=== PATIENT | female | born 1930 | race Caucasian/White ===

== ENCOUNTER 2017-07-21 09:41 | Inpatient (IN) | payer MEDICARE, BC ==
[2017-07-21] MEDS ORDERED: NS 0.9% 1000 ML*IV.FLUID IV ONE (10:13)
[2017-07-21 10:42] LABS: ABS Basophils 0 10^3/ul (0-0.2); ABS Eosinophils 0.2 10^3/ul (0-0.6); ABS Lymphocytes 1.5 10^3/ul (1.0-4.8); ABS Monocytes 0.9 10^3/ul (0-0.8); ABS Nucleated RBC 0 10^3/ul; Eosinophil % 2.2 % (0-6); Hematocrit 32 % (35-47); Hemoglobin 10.8 g/dl (12.0-16.0); Lymphocyte % 17.1 % (25-47); Mean Corpuscular HGB Conc 34 g/dl (31-36); Mean Corpuscular Hemoglobin 32 pg (27-31); Mean Corpuscular Volume 94 fL (80-97); Mean Platelet Volume 7.8 um3 (7.4-10.4); Nucleated Red Blood Cells % 0; Platelet Count 316 10^3/ul (150-450); Red Blood Count 3.36 10^6/ul (4.00-5.40); Red Cell Distribution Width 13 % (10.5-15); White Blood Count 8.6 10^3/ul (3.5-10.8)
[2017-07-21 10:59] LABS: EGFR Non-African American 52.8 (>60)
[2017-07-21 11:03] LABS: INR 0.97 (0.77-1.02)
--- NOTE | 2017-07-21 11:10 | RAD ---
HISTORY: SEPSIS COMPARISONS: February 09, 2014 VIEWS: 1: frontal portable view of the chest at 10:40 AM FINDINGS: LINES AND TUBES: None. CARDIOMEDIASTINAL SILHOUETTE: The cardiomediastinal silhouette is normal for portable technique. PLEURA: The costophrenic angles are sharp. No pleural abnormalities are noted. LUNG PARENCHYMA: There is hyperinflation. ABDOMEN: The upper abdomen is clear. There is no subphrenic gas. BONES AND SOFT TISSUES: Degenerative changes are noted. IMPRESSION: NO ACTIVE CARDIOPULMONARY DISEASE.
[2017-07-21 11:27] LABS: Urine Appearance Cloudy; Urine Blood Negative (Negative); Urine Color Yellow; Urine Ketones Negative (Negative); Urine Protein Negative (Negative); Urine Specific Gravity 1.017 (1.010-1.030); Urine Urobilinogen Negative (Negative)
[2017-07-21] MEDS ORDERED: cefTRIAXone(*) 1 GM in NS 0.9% 50 ML* 50 ML IVPB ONE (11:41)
[2017-07-21] MEDS ORDERED: cefTRIAXone(*) 1 GM ADVAN/BAG ONE (11:47)
[2017-07-21] MEDS ORDERED: Al Hydrox/Mg Hydrox/Simet LIQ* 30 ML UDC PO PRN (12:32)
[2017-07-21] MEDS: Enoxaparin(*) 40 MG/0.4 ML SYR SUBCUT SCH (14:44)
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
--- NOTE | 2017-07-21 18:50 | ED ---
Brian Reaves Angela, scribed for Luther Peraza MD on 07/21/17 at 1012 . Neurological HPI - HPI Summary HPI Summary: This pt is an 86 y/o female, accompanied by her , presenting to [facility] via EMS for confusion and increased weakness. Pt notes she has been eating and drinking well. reports the pt has been acting "either depressed or mad at me." He states pt has had diarrhea and was "cleaning messes all night." Denies chest pain, heaviness, pressure, SOB, or any pain. Pt denies any recent falls. Per , pt has been ambulatory but it has been more difficult to ambulate recently. notes the pt also fell 1 month ago. states he is unable to care for the pt at home. Her PCP is Dr. Perez. PMHx includes Alzheimer's disease and dementia (diagnosed 7 years ago). - History of Current Complaint Chief Complaint: EDAltMentalStatus Stated Complaint: CONFUSION Time Seen by Provider: 07/21/17 09:49 Hx Obtained From: Patient, Family/Grounds Worker - Onset/Duration: Started days ago, Still Present Timing: Constant Current Severity: Moderate Pain Intensity: 0 Pain Scale Used: 0-10 Numeric Character: Weak - generalized, Confusion Aggravating: Nothing Alleviating: Nothing Associated Signs and Symptoms: Positive: Confusion, Weakness, Diarrhea. Negative: Pain, Fever - Additional Pertinent History Primary Care Physician: [id number] - Allergy/Home Medications Allergies/Adverse Reactions: Allergies Allergy/AdvReac Type Severity Reaction Status Date / Time Iodinated Contrast- Oral and Allergy Hives Verified 07/21/17 09:58 IV Dye Home Medications: Home Medications Calcium Carbonate [Calcium] 500 mg PO DAILY 07/21/17 [History Confirmed 07/21/17 ] Cyanocobalamin TAB* [Vitamin B12 TAB*] 500 mcg PO DAILY 07/21/17 [History Confirmed 07/21/17] Multivitamins/Minerals TAB* [Theragran/minerals TAB*] 1 tab PO DAILY 07/21/17 [ History Confirmed 07/21/17] [place]-3 Fatty Acids (Nf) [Fish Oil (NF)] 1,000 mg PO DAILY 07/21/17 [History Confirmed 07/21/17] Sertraline* [Zoloft*] 50 mg PO DAILY 07/21/17 [History Confirmed 07/21/17] amLODIPine TAB* [Norvasc 5 mg TAB*] 2.5 mg PO DAILY 07/21/17 [History Confirmed 07/21/17] PMH/Surg Hx/FS Hx/Imm Hx Endocrine/Hematology History: Denies: Hx Diabetes Cardiovascular History: Reports: Hx Coronary Artery Disease Denies: Hx Hypertension, Hx Pacemaker/ICD Respiratory History: Denies: Hx Asthma GI History: Reports: Hx Gastroesophageal Reflux Disease - ON MEDICATION FOR, Hx Irritable Bowel, Other GI Disorders - HISTORY OF MICROSCOPIC COLITIS-2012 History: Reports: Other Problems/Disorders - stress incontinence Denies: Hx Renal Disease Musculoskeletal History: Reports: Hx Arthritis, Hx Back Problems - Spinal stenosis. Scoliosis., Other Musculoskeletal History - HX OF RUPTURED TENDONS LEFT ANKLE w/repair. Spinal stenosis. Scoliosis. Sensory History: Reports: Hx Contacts or Glasses - Has difficulty seeing persons , Hx Macular Degeneration, Hx Vision Problem, Hx Hearing Problem - Can be hard of hearing Denies: Hx Cataracts, Hx Hearing Aid Opthamlomology History: Reports: Hx Contacts or Glasses - Has difficulty seeing persons, Hx Macular Degeneration, Hx Vision Problem Denies: Hx Cataracts Neurological History: Reports: Hx Dementia, Hx Migraine, Hx Nerve Disease - "NEURITIS IN WRIST JOINTS", Other Neuro Impairments/Disorders - SCOLIOSIS AFFECTING RIGHT HIP. Possible mild dementia Psychiatric History: Reports: Hx Anxiety, Hx of Violent Episodes Against Others Denies: Hx Eating Disorder, Hx Panic Disorder - Cancer History Cancer Type, Location and Year: hs of skin CA Hx Chemotherapy: No Hx Radiation Therapy: No Hx Palliative Cancer Treatment: No - Surgical History Surgery Procedure, Year, and Place: BILATERAL KNEE REPLACEMENT, [facility]. 1980 TOTAL HYSTERECTOMY, [facility]. BILATERAL TIBIAL TENDON REPAIR [facility] YOUNG CHILD. T&A,. SKIN GRAFT-CATARACT. BIlat carpal tunnel. Hx Anesthesia Reactions: No - Immunization History Date of Tetanus Vaccine: Unk Date of Influenza Vaccine: None this year Infectious Disease History: No Infectious Disease History: Denies: Traveled Outside the [place] in Last 30 Days - Family History Known Family History: Negative: Cardiac Disease, Diabetes - Social History Alcohol Use: None Alcohol Amount: SMALL GLASS WINE Substance Use Type: Reports: None Smoking Status (MU): Former Smoker Have You Smoked in the Last Year: No Review of Systems Negative: Fever, Chills Negative: Erythema Negative: Sore Throat Negative: Chest Pain Negative: Shortness Of Breath, Cough Positive: Diarrhea. Negative: Abdominal Pain, Vomiting, Nausea Negative: dysuria, hematuria Negative: Myalgia, Edema Negative: Rash Neurological: Other - POS: confusion. NEG: dizziness Positive: Weakness All Other Systems Reviewed And Are Negative: Yes Physical Exam - Summary Physical Exam Summary: Constitutional: Well-developed, Well-nourished, Alert. (-) Distressed Skin: Warm, Dry HENT: Normocephalic; Atraumatic. Dry mucous membranes. Eyes: Conjunctiva normal Neck: Musculoskeletal ROM normal neck. (-) JVD, (-) Stridor, (-) Tracheal deviation Cardio: Rhythm regular, rate normal, Heart sounds normal; Intact distal pulses; The pedal pulses are 2+ and symmetric. Radial pulses are 2+ and symmetric. (-) Murmur Pulmonary/Chest wall: Effort normal. (-) Respiratory distress, (-) Wheezes, (-) Rales Abd: Soft. (-) Tenderness, (-) Distension, (-) Guarding, (-) Rebound Musculoskeletal: (-) Edema Lymph: (-) Cervical adenopathy Neuro: Alert, Oriented x3, Strength normal, Cranial nerves II-XII are grossly intact. (-) Dysmetria, (-) Nystagmus, (-) Ataxia by finger to nose testing, (-) Sensory deficit. Psych: Mood and affect Normal Triage Information Reviewed: Yes Vital Signs On Initial Exam: Initial Vitals Temp Pulse Resp BP Pulse Ox 99.6 F 96 16 153/80 96 07/21/17 09:48 07/21/17 09:48 07/21/17 09:48 07/21/17 09:48 07/21/17 09:48 Vital Signs Reviewed: Yes - [place] Coma Scale Best Eye Response: 4 - Spontaneous Best Motor Response: 6 - Obeys Commands Best Verbal Response: 5 - Oriented Coma Scale Total: 15 Diagnostics - Vital Signs Vital Signs Temp Pulse Resp BP Pulse Ox 07/21/17 09:48 99.6 F 96 16 153/80 96 - Laboratory Result Diagrams: 07/21/17 10:23 07/21/17 10:23 Lab Statement: Any lab studies that have been ordered have been reviewed, and results considered in the medical decision making process. - Radiology Chest XR Xray Interpretation: No Acute Changes - IMPRESSION: No active cardiopulmonary disease. Dr. Peraza has reviewed this radiology report. Radiology Interpretation Completed By: Radiologist Course/Dx - Course Assessment/Plan: Pt is an 86 y/o female, with hx of Alzheimer's and dementia, who presents with confusion and increased weakness. Additionally pt has had diarrhea. Per , pt has been ambulatory but it has been more difficult to ambulate recently. notes the pt fell 1 month ago. Test results without any significant abnormalities except for hemoglobin of 10.8, hematocrit of 32. Urinalysis is consistent with a UTI. Chest XR is negative. I discussed pt care with Dr. Choe, hospitalist, who accepted pt for admission. - Diagnoses Provider Diagnoses: UTI (urinary tract infection), Delirium with dementia - Physician Notifications Discussed Care Of Patient With: Salma Choe Time Discussed With Above Provider: 11:50 Instructed by Provider To: Admit As Inpatient Discharge - Sign-Out/Discharge Documenting (check all that apply): Discharge/Admit/Transfer - Admit - Discharge Plan Condition: Stable Disposition: ADMITTED TO [facility] The documentation as recorded by the Brian cui Angela accurately reflects the service I personally performed and the decisions made by me, Luther Peraza MD.
[2017-07-22] MEDS: amLODIPine TAB* 5 MG PO SCH (07:58)
[2017-07-22] MEDS: Famotidine TAB* 20 MG PO SCH (07:58)
[2017-07-22] MEDS: Valsartan TAB* 160 MG PO SCH (07:58)
[2017-07-22] MEDS: Clopidogrel TAB* 75 MG PO SCH (07:58)
[2017-07-22] MEDS: Cyanocobalamin TAB* 500 MCG PO SCH (07:59)
[2017-07-22] MEDS: Sertraline* 50 MG TAB PO SCH (07:59)
[2017-07-22] MEDS: Calcium Carbonate TAB* 1250 MG (CALCIUM 500 MG) PO SCH (07:59)
[2017-07-22] MEDS: Multivitamins/Minerals TAB PO SCH (08:00)
[2017-07-22] MEDS: Acetaminophen TAB* 325 MG PO PRN ×2 (08:00→17:14)
[2017-07-22] MEDS: Enoxaparin(*) 40 MG/0.4 ML SYR SUBCUT SCH (12:33)
[2017-07-22] MEDS: cefTRIAXone(*) 1 GM in NS 0.9% 50 ML* 50 ML IVPB SCH (12:34)
--- NOTE | 2017-07-22 23:59 | PN ---
Subjective Date of Service: 07/22/17 Interval History: pleasantly confused elderly female. Denies chest pain or shortness of breath. Denies abd pain n/v/d. Family History: Unchanged from Admission Social History: Unchanged from Admission Past Medical History: Unchanged from Admission Objective Active Medications: Acetaminophen (Tylenol Tab*) 650 mg PO Q4H PRN PRN Reason: FEVER/PAIN Last Admin: 07/22/17 17:14 Dose: 650 mg Al Hydrox/Mg Hydrox/Simethicone (Maalox Plus*) 30 ml PO Q6H PRN PRN Reason: INDIGESTION Amlodipine Besylate (Norvasc Tab*) 2.5 mg PO DAILY [facility] Last Admin: 07/22/17 07:58 Dose: 2.5 mg Calcium Carbonate (Calcium Carbonate Tab*) 500 mg PO DAILY [facility] Last Admin: 07/22/17 07:59 Dose: 500 mg Clopidogrel Bisulfate (Plavix Tab*) 75 mg PO DAILY [facility] Last Admin: 07/22/17 07:58 Dose: 75 mg Cyanocobalamin (Vitamin B12 Tab*) 500 mcg PO DAILY [facility] Last Admin: 07/22/17 07:59 Dose: 500 mcg Enoxaparin Sodium (Lovenox(*)) 40 mg SUBCUT Q24H [facility] Last Admin: 07/22/17 12:33 Dose: 40 mg Famotidine (Pepcid Tab*) 20 mg PO DAILY [facility] Last Admin: 07/22/17 07:58 Dose: 20 mg Ceftriaxone Sodium 1 gm/ (Sodium Chloride) 50 mls @ 200 mls/hr IVPB Q24H [facility] Last Admin: 07/22/17 12:34 Dose: 200 mls/hr Multivitamins/Minerals (Theragran/Minerals Tab*) 1 tab PO DAILY [facility] Last Admin: 07/22/17 08:00 Dose: 1 tab Sertraline HCl (Zoloft*) 50 mg PO DAILY [facility] Last Admin: 07/22/17 07:59 Dose: 50 mg Valsartan (Diovan Tab*) 160 mg PO DAILY [facility] Last Admin: 07/22/17 07:58 Dose: 160 mg Vital Signs - 8 hr 07/22/17 07/22/17 19:03 20:00 Temperature 98.4 F Pulse Rate 99 Respiratory 22 22 Rate Blood Pressure 149/78 (mmHg) O2 Sat by Pulse 96 96 Oximetry Oxygen Devices in Use Now: None Appearance: confused elderly female, no acute distress Eyes: No Scleral Icterus Ears/Nose/Mouth/Throat: Clear Oropharnyx, Mucous Membranes Moist Neck: NL Appearance and Movements; NL JVP, Trachea Midline Respiratory: Symmetrical Chest Expansion and Respiratory Effort, Clear to Auscultation Cardiovascular: NL Sounds; No Murmurs; No JVD, No Edema Abdominal: NL Sounds; No Tenderness; No Distention Extremities: No Edema, No Clubbing, Cyanosis Skin: No Rash or Ulcers Neurological: Alert and Oriented x 3 Nutrition: Taking PO's Result Diagrams: 07/21/17 10:23 07/21/17 10:23 Microbiology and Other Data: Microbiology 07/21/17 13:46 Aerobic Blood Culture - Preliminary Blood Venous No Growth Day 1 Anaerobic Blood Culture - Preliminary No Growth Day 1 Assess/Plan/Problems-Billing Assessment: Ms. Clarke is an 86 y.o female with a hx of dementia ,htn and PVD, who was brought to the ER with behaviorable disturbances acting out. It was also noted by the that he is not longer able to care for her at home. While in the ER she was found to have a UTI. - Patient Problems (1) UTI (urinary tract infection) Current Visit: No Status: Acute Priority: Medium Comment: urine culture positive for e coli - will continue ceftriaxone, sens. pending afebrile (2) Dementia Current Visit: No Status: Acute Priority: Medium Code(s): F03.90 - UNSPECIFIED DEMENTIA WITHOUT BEHAVIORAL DISTURBANCE SNOMED Code(s): 52518344 Comment: Supportive care patient is not currently on any medications - advance stage- unable to care for patient at home (3) HTN (hypertension) Current Visit: No Status: Acute Priority: Medium Code(s): I10 - ESSENTIAL (PRIMARY) HYPERTENSION SNOMED Code(s): 34274560 Comment: Controlled on Valsartan and Norvasc. (4) PVD (peripheral vascular disease) Current Visit: No Status: Acute Code(s): I73.9 - PERIPHERAL VASCULAR DISEASE , UNSPECIFIED SNOMED Code(s): 264596172 Comment: -continue plavix (5) DVT prophylaxis Current Visit: No Status: Acute Priority: Medium Code(s): MSU5759 - SNOMED Code(s): 945043216 Comment: lovenox. (6) DNR (do not resuscitate) Current Visit: Yes Status: Acute Comment: DNR/DNI per Status and Disposition: inpatient - will needed placement
[2017-07-23] MEDS: Clopidogrel TAB* 75 MG PO SCH ×2 (10:46→12:33)
[2017-07-23] MEDS: Cyanocobalamin TAB* 500 MCG PO SCH (10:46)
[2017-07-23] MEDS: Sertraline* 50 MG TAB PO SCH ×2 (10:46→12:33)
[2017-07-23] MEDS: Calcium Carbonate TAB* 1250 MG (CALCIUM 500 MG) PO SCH ×2 (10:46→11:09)
[2017-07-23] MEDS: Famotidine TAB* 20 MG PO SCH (10:46)
[2017-07-23] MEDS: amLODIPine TAB* 5 MG PO SCH ×2 (10:46→12:33)
[2017-07-23] MEDS: Valsartan TAB* 160 MG PO SCH ×2 (10:46→12:33)
[2017-07-23] MEDS: Multivitamins/Minerals TAB PO SCH (10:46)
[2017-07-23] MEDS: cefTRIAXone(*) 1 GM in NS 0.9% 50 ML* 50 ML IVPB SCH (12:13)
[2017-07-23] MEDS: Enoxaparin(*) 40 MG/0.4 ML SYR SUBCUT SCH (12:34)
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
[2017-07-23] MEDS: Amoxicillin/Clavulanate TAB* 875 MG PO SCH (19:50)
[2017-07-24] MEDS: Amoxicillin/Clavulanate TAB* 875 MG PO SCH ×2 (10:07→20:23)
[2017-07-24] MEDS: Acetaminophen TAB* 325 MG PO PRN (10:08)
[2017-07-24] MEDS: amLODIPine TAB* 5 MG PO SCH (10:09)
[2017-07-24] MEDS: Calcium Carbonate TAB* 1250 MG (CALCIUM 500 MG) PO SCH (10:09)
[2017-07-24] MEDS: Valsartan TAB* 160 MG PO SCH (10:09)
[2017-07-24] MEDS: Cyanocobalamin TAB* 500 MCG PO SCH (10:09)
[2017-07-24] MEDS: Clopidogrel TAB* 75 MG PO SCH (10:09)
[2017-07-24] MEDS: Famotidine TAB* 20 MG PO SCH (10:09)
[2017-07-24] MEDS: Sertraline* 50 MG TAB PO SCH (10:10)
[2017-07-24] MEDS: Multivitamins/Minerals TAB PO SCH (10:10)
--- NOTE | 2017-07-24 14:04 | DS ---
CC: Dr. William Perez* DATE OF ADMISSION: 07/21/2017. DATE OF DISCHARGE: 07/24/2017. PRINCIPAL DISCHARGE DIAGNOSES: 1. Delirium. 2. UTI. SECONDARY DISCHARGE DIAGNOSES: 1. Dementia. 2. PPD. DISCHARGE MEDICATIONS: 1. Pepcid 20 mg daily. 2. Plavix 75 mg daily. 3. Valsartan 160 mg daily. 4. Tylenol 650 p.o. q.6 prn pain. 5. Multivitamin daily. 6. Vitamin B12 500 mcg daily. 7. Calcium Carbonate 500 mg daily. 8. Amlodipine 2.5 mg daily. 9. Fish oil 1,000 mg daily. 10. Sertraline 50 mg daily. 11. Amoxicillin/Clavulanate 875 mg b.i.d. for 5 more days. HOSPITAL COURSE BY PROBLEM: 1. Delirium: Ms. Clarke was brought to the emergency department by her because she was acting out and was found to have a urinary tract infection. She was treated with Ceftriaxone at the time of admission and her urine culture returned as E. coli that was pansensitive to antibiotics, so she was switched to Amoxicillin/Clavulanate. She should be treated with five more days of Augmentin. She had no SIRS criteria at the time of admission; however, her reported that he could not take her home because she had become so delirious at home. 2. Delirium secondary to an infectious encephalopathy: Her mentation cleared up markedly after several days of antibiotics. At the time of discharge, she is back to her baseline. She is very pleasant, oriented only to person, but follows commands and answers most questions appropriately. 3. PVD: She was continued on Plavix. 4. Hypertension: She was continued on Amlodipine 2.5 mg daily and Valsartan 160 mg daily. 5. Code status: She is DNR as per her who completed her MOLST. PHYSICAL EXAMINATION AT THE TIME OF DISCHARGE: General: Alert, well-appearing , pleasant female in no distress. She is oriented to person and situation. She understands she is in the hospital and expresses disappointment at being here and wishes to be in her own home. Vital Signs: Temperature 97.3, heart rate 97, respiratory rate 18, pulse ox 93 percent on room air, blood pressure 126/86. HEENT: Pupils equal, round, and reactive to light. Oral mucosa is moist. Neck: No JVP. Chest: Regular rate and rhythm. No murmurs. Lungs: Clear bilaterally. Abdomen: Soft, nontender, nondistended. Extremities: No edema, no ulcers. She has a scaling plaque on her left anterior norman without drainage. Please feel free to contact me with any questions or concerns on Mrs. Clarke' admission or discharge. [id number]/[facility] #: [id number] MTDD
[2017-07-24] MEDS: Enoxaparin(*) 40 MG/0.4 ML SYR SUBCUT SCH (14:23)
[2017-07-25 08:31] VITALS: BP 146/58
[2017-07-25] MEDS: Valsartan TAB* 160 MG PO SCH (09:30)
[2017-07-25] MEDS: Amoxicillin/Clavulanate TAB* 875 MG PO SCH (09:30)
[2017-07-25] MEDS: Clopidogrel TAB* 75 MG PO SCH (09:30)
[2017-07-25] MEDS: Calcium Carbonate TAB* 1250 MG (CALCIUM 500 MG) PO SCH (09:30)
[2017-07-25] MEDS: Multivitamins/Minerals TAB PO SCH (09:30)
[2017-07-25] MEDS: Famotidine TAB* 20 MG PO SCH (09:30)
[2017-07-25] MEDS: Cyanocobalamin TAB* 500 MCG PO SCH (09:30)
[2017-07-25] MEDS: amLODIPine TAB* 5 MG PO SCH (09:30)
[2017-07-25] MEDS: Sertraline* 50 MG TAB PO SCH (09:30)
== END 2017-07-25 10:00 | DRG 689 ==
LOC: ED 09:41 → MED 12:32 → OBSVTOIN 07-23 14:09
PROVIDERS: ADMIT Internal Medicine; ATTEND Internal Medicine
DX: N39.0 Urinary tract infection, site not specified (principal); G93.49 Other encephalopathy; F05 Delirium due to known physiological condition; F02.81 Dementia in other diseases classified elsewhere, unspecified severity, with behavioral disturbance; G30.9 Alzheimer's disease, unspecified; I25.10 Atherosclerotic heart disease of native coronary artery without angina pectoris; K21.9 Gastro-esophageal reflux disease without esophagitis; K58.9 Irritable bowel syndrome, unspecified; M19.90 Unspecified osteoarthritis, unspecified site; M41.9 Scoliosis, unspecified; M48.00 Spinal stenosis, site unspecified; H91.90 Unspecified hearing loss, unspecified ear; H54.7 Unspecified visual loss; G43.909 Migraine, unspecified, not intractable, without status migrainosus; F41.9 Anxiety disorder, unspecified; Z96.653 Presence of artificial knee joint, bilateral; R40.2142 Coma scale, eyes open, spontaneous, at arrival to emergency department; R40.2362 Coma scale, best motor response, obeys commands, at arrival to emergency department; R40.2252 Coma scale, best verbal response, oriented, at arrival to emergency department; I73.9 Peripheral vascular disease, unspecified; I10 Essential (primary) hypertension; Z66 Do not resuscitate; B96.20 Unspecified Escherichia coli [E. coli] as the cause of diseases classified elsewhere; Z91.041 Radiographic dye allergy status; Z85.828 Personal history of other malignant neoplasm of skin; Z90.710 Acquired absence of both cervix and uterus; Z72.89 Other problems related to lifestyle; Z87.891 Personal history of nicotine dependence; Z79.02 Long term (current) use of antithrombotics/antiplatelets; Z98.49 Cataract extraction status, unspecified eye
CPT/HCPCS: 36415; 71045; 80053; 81003; 81015; 83605; 84484; 85025; 85610; 85730; 87040; 87077; 87086; 87186; 99284; A9270-GY; G0378; G8978-GP-CK; G8979-GP-CI; G8987-GO-CL; G8988-GO-CJ; G8989-GO-CJ; J0696; J1650

== ENCOUNTER 2017-11-16 13:56 | Emergency (ER) | payer MEDICARE, BC ==
[2017-11-16 16:24] VITALS: BP 144/61
--- NOTE | 2017-11-16 16:36 | ED ---
GI/ HPI - HPI Summary HPI Summary: hx. of uti in the past , last several days, told of positive urine culture, did not get an antibiotic, since that time denies fever ,chills or flank pain - History of Current Complaint Chief Complaint: [facility] Time Seen by Provider: 11/16/17 16:11 Stated Complaint: URINARY Hx Obtained From: Patient Onset/Duration: Started Days Ago Timing: Constant Severity: Moderate Current Severity: Moderate Pain Intensity: 6 Pain Characteristics: Aching - Additional Pertinent History Primary Care Physician: [id number] - Allergy/Home Medications Allergies/Adverse Reactions: Allergies Allergy/AdvReac Type Severity Reaction Status Date / Time Iodinated Contrast- Oral and Allergy Hives Verified 07/21/17 09:58 IV Dye PMH/Surg Hx/FS Hx/Imm Hx Previously Healthy: No Endocrine/Hematology History: Denies: Hx Diabetes Cardiovascular History: Reports: Hx Coronary Artery Disease, Hx Hypertension Denies: Hx Pacemaker/ICD Respiratory History: Denies: Hx Asthma GI History: Reports: Hx Gastroesophageal Reflux Disease - ON MEDICATION FOR, Hx Irritable Bowel, Other GI Disorders - 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 Scoliosis., Other Musculoskeletal History - HX OF RUPTURED TENDONS LEFT ANKLE w/repair. Spinal stenosis. Scoliosis. 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 Possible mild dementia Psychiatric History: Reports: Hx Anxiety, Hx of Violent Episodes Against Others Denies: Hx Eating Disorder, Hx Panic Disorder - Cancer History Cancer Type, Location and Year: hs of skin CA Hx Chemotherapy: No Hx Radiation Therapy: No Hx Palliative Cancer Treatment: No - Surgical History Surgery Procedure, Year, and Place: BILATERAL KNEE REPLACEMENT, [facility]. 1980 TOTAL HYSTERECTOMY, [facility]. BILATERAL TIBIAL TENDON REPAIR [facility] YOUNG CHILD. T&A,. SKIN GRAFT-CATARACT. BIlat carpal tunnel. Hx Anesthesia Reactions: No - Immunization History Date of Tetanus Vaccine: Unk Date of Influenza Vaccine: None this year Infectious Disease History: No Infectious Disease History: Denies: Traveled Outside the [place] in Last 30 Days - Family History Known Family History: Negative: Cardiac Disease, Diabetes - Social History Alcohol Use: None Alcohol Amount: SMALL GLASS WINE Substance Use Type: Reports: None Smoking Status (MU): Never Smoked Tobacco Have You Smoked in the Last Year: No Review of Systems Constitutional: Negative Eyes: Negative ENT: Negative Cardiovascular: Negative Respiratory: Negative Gastrointestinal: Negative Genitourinary: Other Positive: frequency, incontinence Physical Exam Triage Information Reviewed: Yes Vital Signs On Initial Exam: Initial Vitals Temp Pulse Resp BP Pulse Ox 37.0 C 97 20 144/61 100 11/16/17 16:08 11/16/17 16:08 11/16/17 16:08 11/16/17 16:08 11/16/17 16:08 Vital Signs Reviewed: Yes Appearance: Positive: No Pain Distress Skin: Positive: Warm, Dry Head/Face: Positive: Normal Head/Face Inspection Eyes: Positive: Normal ENT: Positive: Normal ENT inspection Neck: Positive: Supple Respiratory/Lung Sounds: Positive: Clear to Auscultation Cardiovascular: Positive: Normal Diagnostics - Vital Signs Vital Signs Temp Pulse Resp BP Pulse Ox 11/16/17 16:08 37.0 C 97 20 144/61 100 - Laboratory Lab Results: Lab Results 11/16/17 Range/Units 16:23 POC Urine Color Yellow POC Urine Clarity Cloudy POC Urine pH 8.5 (5-9) POC Ur Specif Rush 1.010 (1.010-1.030) POC Urine Protein 2+ A (Negative) POC Ur Glucose (UA) Negative (Negative) POC Urine Ketones Negative (Negative) POC Urine Blood Trace-intact A (Negative) POC Urine Nitrite Positive A (Negative) POC Urine Bilirubin Negative (Negative) POC Urine Urobilinogen 0.2 (Negative) POC U Leukocyte Esteras 3+ A (Negative) Lab Statement: Any lab studies that have been ordered have been reviewed, and results considered in the medical decision making process. G[facility] Course/Dx - Diagnoses Provider Diagnoses: UTI (urinary tract infection) Discharge - Sign-Out/Discharge Documenting (check all that apply): Patient Departure All imaging exams completed and their final reports reviewed: No Studies - Discharge Plan Condition: Good Disposition: HOME Patient Education Materials: Urinary Tract Infection in Women (DC) Referrals: Luke Perez MD [Primary Care Provider] - - Billing Disposition and Condition Condition: GOOD Disposition: Home
== END 2017-11-16 16:48 | disposition home or self-care (01) ==
LOC: UCCORT 13:56
DX: Z91.041 Radiographic dye allergy status (principal); N39.0 Urinary tract infection, site not specified
CPT/HCPCS: 81003; 87086; 99212; G0463

== ENCOUNTER 2020-10-05 16:21 | Inpatient (IN) ==
[2020-10-05] MEDS ORDERED: cefTRIAXone 2 GM ADDV.VIAL 2 GM in NS 0.9% 100 ml BAG 100 ML IVPB ONE (21:32)
[2020-10-06 00:10] LABS: ABS Basophils 0.1 10^3/ul (0-0.2); ABS Eosinophils 0.3 10^3/ul (0-0.6); ABS Lymphocytes 1.6 10^3/ul (1.0-4.8); ABS Monocytes 0.7 10^3/ul (0-0.8); ABS Neutrophils 5.5 10^3/ul (1.5-7.7); Eosinophil % 3.7 %; Hematocrit 38 % (35-47); Hemoglobin 12.9 g/dL (12.0-16.0); Lymphocyte % 19.9 %; Mean Corpuscular HGB Conc 34 g/dL (31-36); Mean Corpuscular Hemoglobin 30 pg (27-31); Mean Corpuscular Volume 89 fL (80-97); Mean Platelet Volume 7.8 fL (7.4-10.4); Nucleated Red Blood Cells % 0.2; Platelet Count 408 10^3/uL (150-450); Red Cell Distribution Width 13 % (10-15); White Blood Count 8.2 10^3/uL (3.5-10.8)
[2020-10-06 00:25] LABS: Albumin 3.5 g/dL (3.2-5.2); Albumin/Globulin Ratio 0.9 (1-3); C Reactive Protein 45.31 mg/L (<8.01); Calcium 9.2 mg/dL (8.6-10.3); EGFR African American 83.1 (>60); EGFR Non-African American 68.7 (>60); Globulin 3.8 g/dL (2-4); Potassium 4.6 mmol/L (3.5-5.0); Total Bilirubin 0.3 mg/dL (0.2-1.0); Total Protein 7.3 g/dL (6.4-8.9)
[2020-10-06] MEDS: ceFAZolin 2 GM in NS PREMIX 2 GM/100 ML BAG IVPB SCH ×3 (04:16→22:06)
[2020-10-06] MEDS: Heparin 5000 UNITS/ML 1 mL VIAL SUBCUT SCH ×3 (05:40→21:58)
[2020-10-07] MEDS: ceFAZolin 2 GM in NS PREMIX 2 GM/100 ML BAG IVPB SCH ×3 (05:39→21:23)
[2020-10-07] MEDS: Heparin 5000 UNITS/ML 1 mL VIAL SUBCUT SCH ×3 (05:39→21:23)
[2020-10-07 08:37] LABS: Hematocrit 35 % (35-47); Hemoglobin 12.3 g/dL (12.0-16.0); Mean Corpuscular HGB Conc 35 g/dL (31-36); Mean Corpuscular Hemoglobin 30 pg (27-31); Mean Corpuscular Volume 88 fL (80-97); Mean Platelet Volume 7.9 fL (7.4-10.4); Platelet Count 407 10^3/uL (150-450); Red Blood Count 4.04 10^6 /uL (3.70-4.87); Red Cell Distribution Width 14 % (10-15); White Blood Count 7.3 10^3/uL (3.5-10.8)
[2020-10-07 08:54] LABS: EGFR African American 71.5 (>60); EGFR Non-African American 59.1 (>60); Potassium 4.5 mmol/L (3.5-5.0)
[2020-10-07] MEDS ORDERED: Polyethylene Glycol 3350 17 GM PACKET PO PRN (17:05)
[2020-10-07] MEDS ORDERED: Senna TAB 8.6 mg TAB PO PRN (17:05)
[2020-10-08] MEDS: Magnesium Hydroxide LIQ 30 ML UDC PO PRN ×2 (05:37→12:17)
[2020-10-08] MEDS: ceFAZolin 2 GM in NS PREMIX 2 GM/100 ML BAG IVPB SCH ×2 (05:37→14:23)
[2020-10-08] MEDS: Heparin 5000 UNITS/ML 1 mL VIAL SUBCUT SCH ×3 (05:37→22:05)
[2020-10-09] MEDS ORDERED: ceFAZolin 1 GM Q12H (ADVAN) IVPB SCH (02:30)
[2020-10-09] MEDS: ceFAZolin 2 GM in NS PREMIX 2 GM/100 ML BAG IVPB SCH ×2 (03:05→14:21)
[2020-10-09] MEDS: Heparin 5000 UNITS/ML 1 mL VIAL SUBCUT SCH ×3 (06:12→20:26)
[2020-10-10] MEDS: ceFAZolin 2 GM in NS PREMIX 2 GM/100 ML BAG IVPB SCH ×3 (02:42→21:33)
[2020-10-10] MEDS: Heparin 5000 UNITS/ML 1 mL VIAL SUBCUT SCH ×3 (05:53→21:33)
[2020-10-10 09:36] LABS: ABS Eosinophils 0.3 10^3/ul (0-0.6); ABS Lymphocytes 1.5 10^3/ul (1.0-4.8); ABS Monocytes 0.5 10^3/ul (0-0.8); ABS Neutrophils 6.4 10^3/ul (1.5-7.7); Eosinophil % 3.2 %; Hematocrit 38 % (35-47); Hemoglobin 12.9 g/dL (12.0-16.0); Lymphocyte % 17.2 %; Mean Corpuscular HGB Conc 34 g/dL (31-36); Mean Corpuscular Hemoglobin 30 pg (27-31); Mean Corpuscular Volume 90 fL (80-97); Mean Platelet Volume 7.4 fL (7.4-10.4); Platelet Count 341 10^3/uL (150-450); Red Blood Count 4.27 10^6 /uL (3.70-4.87); Red Cell Distribution Width 14 % (10-15); White Blood Count 8.8 10^3/uL (3.5-10.8)
[2020-10-11] MEDS: ceFAZolin 2 GM in NS PREMIX 2 GM/100 ML BAG IVPB SCH ×2 (03:41→11:09)
[2020-10-11] MEDS: Heparin 5000 UNITS/ML 1 mL VIAL SUBCUT SCH (05:32)
[2020-10-11 11:54] VITALS: BP 134/57
== END 2020-10-11 13:20 | disposition home health service (06) | DRG 541 ==
LOC: ED 16:21 → MED 10-06 01:33 → SUATTDRO 10-06 01:33 → MED 10-06 03:03
PROVIDERS: ADMIT Hospitalist; ATTEND Hospitalist